=== PATIENT | female | born 1955 | race Caucasian/White ===

== ENCOUNTER 2019-07-22 16:58 | Emergency (ER) | payer BC ==
--- NOTE | 2019-07-22 17:02 | UC ---
Hand/Wrist HPI - HPI Summary HPI Summary: 63 yo female presents with multiple complaints. 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 He falls frequently and she has to catch him or stabilize him. Occasionally, he will fall and she will try to catch him, but he will end up falling on top of her. This has been happening for several months. Over this time period she has developed pains in her feet, right knee, and most recently right index finger when she hit it against a wall during trying to catch her . She saw her PCP on Thursday for this and was told she has tendinitis in her feet and to try gel inserts - pt has done this but not helping. Was told she likely has a rosales's cyst to her right knee, but pt is worried as there was no confirmatory testing and is requesting an ultrasound today. She has not taken anything OTC for her symptoms. Denies specific injury. Denies numbness or tingling. No hx of blood clots. - History Of Current Complaint Stated Complaint: FOOT/KNEE/FINGER PAIN Time Seen by Provider: 07/22/19 17:00 Hx Obtained From: Patient Onset/Duration: Gradual Onset Severity Initially: Moderate Severity Currently: Moderate Pain Intensity: 6 Pain Scale Used: 0-10 Numeric - Allergies/Home Medications Allergies/Adverse Reactions: Allergies Allergy/AdvReac Type Severity Reaction Status Date / Time cephalexin Allergy Rash Verified 07/22/19 17:11 Penicillins Allergy Swelling Verified 07/22/19 17:11 Of Face,Lips,& Throat Home Medications: Home Medications Acetaminophen TAB* [Tylenol TAB*] 325 mg PO Q4H PRN 06/02/13 [History Confirmed 07/22/19] Acetaminophen/Caffeine [[facility] Tension Headache Gelcap] 1 tab PO DAILY 07/22/19 [ History Confirmed 07/22/19] Cyclobenzaprine TAB* [Flexeril 10 MG TAB*] 10 mg PO DAILY 07/22/19 [History Confirmed 07/22/19] Simvastatin (NF) [Zocor (NF)] 40 mg PO DAILY 07/22/19 [History Confirmed ] PMH/Surg Hx/FS Hx/Imm Hx - Additional Past Medical History Additional PMH: None Endocrine History: Dyslipidemia - Surgical History Surgical History: Yes Surgery Procedure, Year, and Place: 2 CSP FUSIONS - 1996 & 1999. tonsillectomy. c sect. fallopian tube surgery - EXPLORTORY LAPS - SEVERAL FOR FERTILITY PURPOSES. 2 BENIGN Rt BREAST BIOPSIES - W/ MARKER PLACEMENT. SOME BASAL CELLS REMOVED - Family History Known Family History: Positive: Hypertension - Social History Lives: With Family Alcohol Use: None Substance Use Type: None Smoking Status (MU): Never Smoked Tobacco Have You Smoked in the Last Year: Yes Review of Systems All Other Systems Reviewed And Are Negative: No Constitutional: Positive: Negative Skin: Positive: Negative Respiratory: Positive: Negative Cardiovascular: Positive: Negative Neurovascular: Positive: Negative Musculoskeletal: Positive: Other: - Foot, knee, and finger pain. Neurological/Mental Status: Positive: Negative Psychological: Positive: Negative Physical Exam - Summary Physical Exam Summary: GENERAL: NAD. WDWN. No pain distress. SKIN: No rashes, sores, ulcers, masses, lesions. CHEST: CTAB. No r/r/w. No accessory muscle use. Breathing comfortably and in no distress. CV: Pulses intact radial, ulnar, popliteal, PT, and DP b/l. Cap refill < 2seconds MSK: FROM in B/L UEs and LEs with symmetric strength. RIGHT KNEE: Moderate TTP behind right knee. No palpable cord. FROM. Negative lui, A/p drawer, and kalpana. RIGHT FOOT: Moderate ttp about achilles insertion. No 5th MT tenderness. NTTP ankle with FROM. Negative danielle sign. LEFT FOOT: Mild ttp about lateral foot without specific point tenderness. RIGHT index finger: Moderate ttp at PIP with FROM. NEURO: Sensations intact b/l LEs and all fingers. PSYCH: Age appropriate behavior. Triage Information Reviewed: Yes Vital Signs: Vital Signs: Temp Pulse Resp BP Pulse Ox 98.7 F 110 16 137/83 98 07/22/19 17:02 07/22/19 17:02 07/22/19 17:02 07/22/19 17:02 07/22/19 17:02 Vital Signs Reviewed: Yes Diagnostics - Radiology Feet XR Radiology Interpretation Completed By: Radiologist Summary of Radiographic Findings: IMPRESSION: OSTEOARTHRITIS HEEL SPURS. NO ACUTE OSSEOUS INJURY BILATERALLY. IF SYMPTOMS PERSIST, RECOMMEND REPEAT IMAGING. Right knee XR Radiology Interpretation Completed By: Radiologist Summary of Radiographic Findings: IMPRESSION: MILD OSTEOARTHRITIS. NO ACUTE OSSEOUS INJURY. IF SYMPTOMS PERSIST, RECOMMEND REPEAT IMAGING. Right leg US Radiology Interpretation Completed By: Radiologist Summary of Radiographic Findings: FINDINGS: Right deep veins: Unremarkable. The common femoral, femoral, proximal profunda femoral and popliteal veins are patent without thrombus. Normal Doppler waveforms. Normal compressibility and/ or augmentation response. Right superficial veins: Unremarkable. Saphenofemoral junction is patent without thrombus. Soft tissues: Unremarkable. IMPRESSION: No evidence of DVT. Right index finger XR Radiology Interpretation Completed By: Radiologist Summary of Radiographic Findings: IMPRESSION: OSTEOARTHRITIS. NO ACUTE OSSEOUS INJURY. IF SYMPTOMS PERSIST, RECOMMEND REPEAT IMAGING. Hand/Wrist Course/Dx - Course Course Of Treatment: XRs negative for acute process. US negative for DVT or rosales's cyst. 1) Suspect tendinitis of feet R>L at this time; Advised to RICE and will try her with a walking boot. 2) Regarding her finger : suspect contusion, advised to rest and apply ice to this. 3) Right KNEE: Suspect arthritic pain. Advised to RICE and continue tylenol for pain. F/u with Orthopedics if continues symptoms. - Differential Dx/Diagnosis Provider Diagnosis: Strain of right index finger, Right knee pain, Right Achilles tendinitis, Left foot pain Discharge ED - Sign-Out/Discharge Documenting (check all that apply): Patient Departure All imaging exams completed and their final reports reviewed: Yes - Discharge Plan Condition: Stable Disposition: HOME Patient Education Materials: Achilles Tendinitis (ED), Knee Pain (ED) Referrals: Jamshid Pulido MD [Primary Care Provider] - Eloy Zacarias MD [Medical Doctor] - Additional Instructions: If you develop a fever, shortness of breath, chest pain, new or worsening symptoms - please call your PCP or go to the ED immediately. 1) Your X-rays of your feet, knee, and finger showed some arthritis, but were otherwise normal 2) The ultrasound of your right leg was normal and did not show a rosales's cyst, but likely some varicose veins in the area on exam. 3) I recommend you try the walking boot as much as possible for your right heel pain. 4) I encourage you to follow up with Orthopedics for further evaluation of your feet and right knee pain. - Billing Disposition and Condition Condition: STABLE Disposition: Home
[2019-07-22 19:21] VITALS: BP 135/80
== END 2019-07-22 19:16 | disposition home or self-care (01) ==
LOC: UCEAST 16:58
DX: M76.61 Achilles tendinitis, right leg (principal); S66.811A Strain of other specified muscles, fascia and tendons at wrist and hand level, right hand, initial encounter; M19.071 Primary osteoarthritis, right ankle and foot; M17.11 Unilateral primary osteoarthritis, right knee; M19.041 Primary osteoarthritis, right hand; M77.31 Calcaneal spur, right foot; M25.561 Pain in right knee; E78.5 Hyperlipidemia, unspecified; M79.672 Pain in left foot; X58.XXXA Exposure to other specified factors, initial encounter; Y92.9 Unspecified place or not applicable; Z88.1 Allergy status to other antibiotic agents; Z88.0 Allergy status to penicillin; Z79.899 Other long term (current) drug therapy
CPT/HCPCS: 73140; 99212; G0463